=== PATIENT | male | born 1965 | race Hispanic/Latino ===

== ENCOUNTER 2024-03-23 09:59 | Emergency (ER) | payer SELFPAY ==
[2024-03-23] VITALS (7 sets, daily range): BP systolic 150–174; BP diastolic 74–94
[~2024-03-23] VITALS: Ht 165.1 cm; Wt 104.0 kg
[2024-03-23] MEDS ORDERED: ONDANSETRON HCl 4 MG/2 ML SDV IV ONE (10:10)
[2024-03-23] MEDS ORDERED: SODIUM CHLORIDE 0.9% 1,000 ML IV ONE (10:10)
[2024-03-23 10:37] LABS: BASO% 0.3 % (0-3); EOS% 1.3 % (0-8); HEMATOCRIT 46.1 % (39.0-50.0); HEMOGLOBIN 15.6 g/dl (14.0-18.0); IMMATURE GRANULOCYTES 0.2 % (0.0-5.0); LYMPH% 33.3 % (15-41); MEAN CELL VOLUME 86.2 fL CALC (80.0-100.0); MEAN CORPUSCULAR HGB 29.2 pG CALC (26.0-32.0); MEAN CORPUSCULAR HGB CONC 33.8 g/dL CAL (32.0-36.0); MONO% 5.7 % (2-13); NEUT# 3.76 thou/uL (1.82-7.42); NEUT% 59.2 % (42-76); RED BLOOD COUNT 5.35 mill/uL (4.70-6.10); RED CELL DISTRI WIDTH 12.3 % (11.5-15.5)
[2024-03-23 10:56] LABS: BILIRUBIN, TOTAL 1.5 mg/dL (0.2-1.3); CREATININE 0.8 mg/dL (0.7-1.3); POTASSIUM 4.1 mmol/l (3.5-5.1); TOTAL PROTEIN 7.2 g/dL (6.3-8.2)
[2024-03-23 10:57] LABS: INTERNATIONAL NORMALIZED RATIO 1.2 RATIO (0.7-1.3); PROTHROMBIN TIME 10.9 SECONDS (9.0-12.5)
[2024-03-23] MEDS ORDERED: MECLIZINE25 MG PO (12:38)
== END 2024-03-23 12:50 | disposition home or self-care (01) | DRG 125 ==
LOC: ED 09:59
PROVIDERS: Family Medicine
DX: H55.09 Other forms of nystagmus (principal)